=== PATIENT | male | born 1955 ===

== ENCOUNTER 2023-02-26 06:47 | Day surgery (SDC) | payer OTHER ==
[~2023-02-26] VITALS: Ht 190.5 cm; Wt 106.0 kg
[~2023-02-26 06:47] MED LIST: ADVAIR DISK1 INH; ALBUTEROL SULFA0.51; ASPIRIN 81 LOW81 MG PO; ATENOLOL50 MG PO; ATORVASTATIN CA40 MG PO; DOCUSATE SOD100 MG PO; LISINOPRIL20 M1 PO; LORATADINE10 M3 PO; MONTELUKAST SOD10 MG PO; NITROSTAT0.4 MG SL; SPIRIVA HANDIH18 MCG; TAMSULOSIN HCL0.4 MG PO; VENTOLIN HFA108 MCG IN; VITAMIN D325 MCG PO
[2023-02-26 09:20] VITALS: BP 122/76
== END 2023-02-26 09:18 | disposition home or self-care (01) | DRG 395 ==
LOC: ENDO 06:47 → ORM 08:00 → ENDO 09:18 → ORM 11:00
PROVIDERS: ATTEND Surgery
PROC: 0DBN8ZX Excision of Sigmoid Colon, Via Natural or Artificial Opening Endoscopic, Diagnostic (ICD-10-PCS; principal; 2023-02-26)
PROC: 0DBL8ZX Excision of Transverse Colon, Via Natural or Artificial Opening Endoscopic, Diagnostic (ICD-10-PCS; 2023-02-26)
DX: D12.5 Benign neoplasm of sigmoid colon (principal); D12.3 Benign neoplasm of transverse colon; K64.8 Other hemorrhoids; Z80.0 Family history of malignant neoplasm of digestive organs; Z83.719 Family history of colon polyps, unspecified